=== PATIENT | male | born 1965 | race Caucasian/White ===

== ENCOUNTER 2016-07-10 08:24 | Emergency (ER) | payer OTHER ==
[~2016-07-10] VITALS: Ht 185.4 cm; Wt 81.6 kg
[2016-07-10 09:15] VITALS: BP 125/73
== END 2016-07-10 11:30 | disposition home or self-care (01) ==
LOC: ER 08:24
DX: S60.561A Insect bite (nonvenomous) of right hand, initial encounter (principal); L03.113 Cellulitis of right upper limb; F17.210 Nicotine dependence, cigarettes, uncomplicated; F12.10 Cannabis abuse, uncomplicated; Z59.0 Homelessness; F15.10 Other stimulant abuse, uncomplicated; W57.XXXA Bitten or stung by nonvenomous insect and other nonvenomous arthropods, initial encounter; Y93.89 Activity, other specified; Y99.9 Unspecified external cause status; Y92.89 Other specified places as the place of occurrence of the external cause

== ENCOUNTER 2016-12-14 08:43 | Emergency (ER) | payer OTHER ==
[~2016-12-14] VITALS: Ht 188 cm; Wt 81.6 kg
[2016-12-14 08:48] VITALS: BP 131/73
[2016-12-14] MEDS ORDERED: cefTRIAXone SOD 1,000 MG VL IM ONE (10:30)
== END 2016-12-14 10:57 | disposition home or self-care (01) ==
LOC: EDBD 08:43 → ER 08:48
DX: S11.95XA Open bite of unspecified part of neck, initial encounter (principal); B96.89 Other specified bacterial agents as the cause of diseases classified elsewhere; F17.210 Nicotine dependence, cigarettes, uncomplicated; F12.10 Cannabis abuse, uncomplicated; F15.10 Other stimulant abuse, uncomplicated; W57.XXXA Bitten or stung by nonvenomous insect and other nonvenomous arthropods, initial encounter; Y93.89 Activity, other specified; Y92.89 Other specified places as the place of occurrence of the external cause; Y99.8 Other external cause status; Z59.0 Homelessness
CPT/HCPCS: 96372; 99283; J0696

== ENCOUNTER 2016-12-27 14:38 | Emergency (ER) | payer OTHER ==
[~2016-12-27] VITALS: Ht 185.4 cm; Wt 99.8 kg
[2016-12-27] MEDS ORDERED: KETOROLAC TROMETH 30 MG/ML 1ML VIAL IV ONE (15:30)
[2016-12-27 15:31] LABS: Basophils # (auto) 0 uL; CONDITION Y; Eosinophils # (auto) 0.1 uL; Eosinophils % (auto) 0.9 % (0.0-7.0); Hematocrit 40.1 % (41.0-53.0); Hemoglobin 13.7 g/dL (13.5-17.5); Lymphocytes # (auto) 0.9 uL; Lymphocytes % (auto) 8.9 % (10.0-50.0); Mean Corpuscular Hemoglobin 31.2 pg (28.0-32.0); Mean Corpuscular Hgb Conc. 34.1 g/dL (32.0-36.0); Mean Corpuscular Volume 91.5 fL (80.0-100.0); Mean Platelet Volume 9.5 fL (7.4-10.4); Monocytes # (auto) 0.9 uL; Monocytes % (auto) 9.4 % (0.0-12.0); Neutrophils # (auto) 7.8 uL; Neutrophils % (auto) 80.8 % (37.0-80.0); Platelet Count (auto) 223 10^3/uL (140-450); Red Cell Distribution Width 13.8 % (11.6-16.0); White Blood Cell 9.7 10^3/uL (4.4-10.8)
[2016-12-27] MEDS ORDERED: IOHEXOL 300 MG/ML 100ML BOTTLE IJ ONE (15:47)
[2016-12-27 15:53] LABS: Albumin 2.9 g/dL (3.4-5.0); BUN/Creatinine Ratio 9.9; Calcium 7.9 mg/dL (8.5-10.1); Potassium 3.6 mmol/L (3.5-5.1)
[2016-12-27 15:56] LABS: Bilirubin, Total 0.6 mg/dL (0.2-1.0); Total Protein 6.5 g/dL (6.4-8.2)
[2016-12-27 18:20] LABS: Urine Bilirubin Negative (Negative); Urine Color Yellow (Yellow); Urine Glucose Normal (Normal); Urine Ketone Negative (Negative); Urine Nitrite Negative (Negative); Urine RBC 14 /hpf (0 - 3); Urine Squamous Epithelial Cell FEW /hpf (<5); Urine Urobilinogen Normal (Negative)
[2016-12-27 19:38] LABS: Urine Blood 1+ /uL (Negative)
[2016-12-27 20:41] VITALS: BP 138/58
== END 2016-12-27 20:46 | disposition home or self-care (01) ==
LOC: EDBD 14:38 → ER 14:43
DX: R10.9 Unspecified abdominal pain (principal); F17.210 Nicotine dependence, cigarettes, uncomplicated; F12.10 Cannabis abuse, uncomplicated; F15.10 Other stimulant abuse, uncomplicated; Z59.0 Homelessness
CPT/HCPCS: 36415; 71260; 74177; 80053; 80307; 80320; 81001; 83690; 85025; 94761; 96374; 99285; J1885; Q9967; 93005

== ENCOUNTER 2017-02-09 10:44 | Emergency (ER) | payer OTHER ==
[~2017-02-09] VITALS: Ht 182.9 cm; Wt 81.6 kg
[2017-02-09 14:06] VITALS: BP 146/97
== END 2017-02-09 14:51 | disposition home or self-care (01) ==
LOC: ER 10:44
DX: S93.401A Sprain of unspecified ligament of right ankle, initial encounter (principal); F17.210 Nicotine dependence, cigarettes, uncomplicated; F12.10 Cannabis abuse, uncomplicated; F15.10 Other stimulant abuse, uncomplicated; W19.XXXA Unspecified fall, initial encounter; Y93.89 Activity, other specified; Y99.8 Other external cause status; Y92.89 Other specified places as the place of occurrence of the external cause; Z59.0 Homelessness
CPT/HCPCS: 29515; 73610

== ENCOUNTER 2017-04-12 17:03 | Emergency (ER) | payer OTHER ==
[~2017-04-12] VITALS: Ht 190.5 cm; Wt 81.6 kg
[2017-04-12 17:12] VITALS: BP 131/71
[2017-04-12] MEDS ORDERED: cefTRIAXone SOD 1,000 MG VL IM ONE (21:15)
[2017-04-12] MEDS ORDERED: IBUPROFEN 600 MG TAB PO ONE (21:15)
== END 2017-04-12 21:40 | disposition home or self-care (01) ==
LOC: EDBD 17:03 → ER 17:03
DX: L02.414 Cutaneous abscess of left upper limb (principal); L02.413 Cutaneous abscess of right upper limb; F17.210 Nicotine dependence, cigarettes, uncomplicated; F12.10 Cannabis abuse, uncomplicated; F15.10 Other stimulant abuse, uncomplicated; Z59.0 Homelessness; W57.XXXA Bitten or stung by nonvenomous insect and other nonvenomous arthropods, initial encounter; Y93.89 Activity, other specified; Y99.8 Other external cause status; Y92.89 Other specified places as the place of occurrence of the external cause
CPT/HCPCS: 96372; 99283; J0696

== ENCOUNTER 2017-09-23 14:18 | Emergency (ER) | payer OTHER ==
[~2017-09-23] VITALS: Ht 182.9 cm; Wt 81.6 kg
[2017-09-23 14:37] VITALS: BP 135/88
== END 2017-09-23 15:42 | disposition home or self-care (01) ==
LOC: ER 14:18
DX: S70.361A Insect bite (nonvenomous), right thigh, initial encounter (principal); F17.210 Nicotine dependence, cigarettes, uncomplicated; W57.XXXA Bitten or stung by nonvenomous insect and other nonvenomous arthropods, initial encounter; Z59.0 Homelessness; Y93.89 Activity, other specified; Y99.8 Other external cause status; Y92.89 Other specified places as the place of occurrence of the external cause

== ENCOUNTER 2017-10-28 10:15 | Inpatient (IN) | payer OTHER ==
[~2017-10-28] VITALS: Ht 182.9 cm; Wt 86.6 kg
[2017-10-28] MEDS ORDERED: ONDANSETRON HCL 4 MG/2 ML VIAL IV ONE (10:45)
[2017-10-28] MEDS ORDERED: SODIUM CHLORIDE 0.9% 1,000 ML IV ONE (10:49)
[2017-10-28] MEDS ORDERED: PROMETHAZINE HCL 25 MG/ML 1ML IV ONE (11:00)
[2017-10-28 11:06] LABS: Basophils # (auto) 0 uL; Basophils % (auto) 0.1 % (0.0-2.0); Eosinophils # (auto) 0 uL; Hematocrit 38.6 % (41.0-53.0); Hemoglobin 12.6 g/dL (13.5-17.5); Lymphocytes # (auto) 0.4 uL; Lymphocytes % (auto) 3.2 % (10.0-50.0); Mean Corpuscular Hemoglobin 30.9 pg (28.0-32.0); Mean Corpuscular Hgb Conc. 32.8 g/dL (32.0-36.0); Mean Corpuscular Volume 94.3 fL (80.0-100.0); Monocytes # (auto) 1.3 uL; Monocytes % (auto) 10.6 % (0.0-12.0); Neutrophils # (auto) 10.7 uL; Neutrophils % (auto) 86.1 % (37.0-80.0); Platelet Count (auto) 168 10^3/uL (140-450); Red Blood Cells 4.09 10^6/uL (4.5-5.90); Red Cell Distribution Width 13.8 % (11.8-14.3); White Blood Cell 12.4 10^3/uL (4.4-10.8)
[2017-10-28 11:30] LABS: Albumin 3.1 g/dL (3.4-5.0); BUN/Creatinine Ratio 14.7; Bilirubin, Total 1.5 mg/dL (0.2-1.0); Calcium 7.9 mg/dL (8.5-10.1); Potassium 3.8 mmol/L (3.5-5.1); Total Protein 6.2 g/dL (6.4-8.2)
[2017-10-28] MEDS ORDERED: cefTRIAXone 1GM/10ml IVPUSH 10 ML IV ONE (12:30)
[2017-10-28] MEDS ORDERED: AZITHROMYCIN 500MG/ 250ML 250 ML IV ONE (17:30)
[2017-10-28] MEDS: SODIUM CHLORIDE 0.9% 1,000 ML IV SCH (17:37)
[2017-10-28] MEDS ORDERED: ALBUTEROL SULF 2.5 MG/0.5ML(0.5%) NEB SOLN NEB PRN (17:45)
[2017-10-28] MEDS ORDERED: PROMETHAZINE HCL 25 MG/ML 1ML IV PRN (17:45)
[2017-10-28] MEDS ORDERED: TEMAZEPAM 15 MG CAP PO PRN (17:45)
[2017-10-28] MEDS ORDERED: MORPHINE SULFATE 4 MG/ML SYR/VIAL IV PRN ×3 (17:45)
[2017-10-28] MEDS ORDERED: PANTOPRAZOLE 40 MG/10 ML VIAL IV ONE (17:45)
[2017-10-28] MEDS ORDERED: NITROGLYCERIN 0.4 MG SL TAB SL PRN (17:45)
[2017-10-28] MEDS: metroNIDAZOLE 500MG/100ML 100 ML IV SCH ×2 (18:00→19:30)
[2017-10-28 18:09] VITALS: BP 103/18
[2017-10-28] MEDS ORDERED: LEVOFLOXACIN 500MG 100 ML IV ONE (18:15)
[2017-10-28 19:11] LABS: Hematocrit 37.5 % (41.0-53.0); Hemoglobin 12.5 g/dL (13.5-17.5)
[2017-10-28 19:28] LABS: CRP High Sensitivity 16.1 mg/dL (< 0.3)
[2017-10-28 19:40] VITALS: BP 122/59
[2017-10-28 22:00] VITALS: BP 122/59
[2017-10-29 01:29] LABS: Hematocrit 36.7 % (41.0-53.0); Hemoglobin 12.3 g/dL (13.5-17.5)
[2017-10-29] MEDS: SODIUM CHLORIDE 0.9% 1,000 ML IV SCH ×3 (03:09→23:36)
[2017-10-29 05:00] VITALS: BP 101/54
[2017-10-29] MEDS: metroNIDAZOLE 500MG/100ML 100 ML IV SCH ×4 (05:14→23:45)
[2017-10-29 07:17] LABS: Albumin 2.5 g/dL (3.4-5.0); BUN/Creatinine Ratio 16.8; Bilirubin, Total 1.8 mg/dL (0.2-1.0); Calcium 8.1 mg/dL (8.5-10.1); Potassium 3.7 mmol/L (3.5-5.1); Total Protein 5.6 g/dL (6.4-8.2)
[2017-10-29 08:00] VITALS: BP 97/62
[2017-10-29 08:11] LABS: Basophils # (auto) 0 uL; Basophils % (auto) 0.3 % (0.0-2.0); Eosinophils # (auto) 0.1 uL; Eosinophils % (auto) 0.4 % (0.0-7.0); Hematocrit 35.1 % (41.0-53.0); Hemoglobin 11.6 g/dL (13.5-17.5); Lymphocytes # (auto) 1.5 uL; Lymphocytes % (auto) 12.5 % (10.0-50.0); Mean Corpuscular Hemoglobin 31.2 pg (28.0-32.0); Mean Corpuscular Hgb Conc. 33.1 g/dL (32.0-36.0); Mean Corpuscular Volume 94.3 fL (80.0-100.0); Monocytes # (auto) 0.9 uL; Monocytes % (auto) 7.3 % (0.0-12.0); Neutrophils # (auto) 9.6 uL; Neutrophils % (auto) 79.5 % (37.0-80.0); Platelet Count (auto) 155 10^3/uL (140-450); Red Blood Cells 3.72 10^6/uL (4.5-5.90); Red Cell Distribution Width 13.5 % (11.8-14.3)
[2017-10-29 09:00] VITALS: BP 97/62
[2017-10-29] MEDS: PANTOPRAZOLE 40 MG/10 ML VIAL IV SCH (10:41)
[2017-10-29] MEDS: LEVOFLOXACIN 500MG 100 ML IV SCH (10:42)
[2017-10-29 13:00] VITALS: BP 95/61
[2017-10-29 17:28] VITALS: BP 91/53
[2017-10-29 22:39] LABS: Urine Bacteria NONE SEEN /hpf (None Seen); Urine Blood Negative /uL (Negative); Urine Specific Gravity 1.016 (1.001-1.035); Urine WBC 16 /hpf (0 - 3)
[2017-10-29 22:52] LABS: Alcohol, Urine < 3.0 mg/dL (0-5); Barbiturate Scree,Urine NEGATIVE (NEGATIVE); Benzodiazephine Screen, Urine NEGATIVE (NEGATIVE); Cannabinoid Screen, Urine NEGATIVE (NEGATIVE); Cocaine Screen, Urine NEGATIVE (NEGATIVE); Opiate Scree,Urine NEGATIVE (NEGATIVE); Phencyclidine Screen, Urine NEGATIVE (NEGATIVE)
[2017-10-29 22:54] LABS: Amphetamine Screen, Urine POSITIVE (NEGATIVE)
[2017-10-29 23:02] VITALS: BP 119/57
[2017-10-30] MEDS: LORazepam 0.5 MG TAB PO PRN (03:40)
[2017-10-30] MEDS: metroNIDAZOLE 500MG/100ML 100 ML IV SCH ×4 (05:52→23:28)
[2017-10-30 05:59] VITALS: BP 109/54
[2017-10-30] MEDS: SODIUM CHLORIDE 0.9% 1,000 ML IV SCH ×2 (08:50→19:41)
[2017-10-30 09:00] VITALS: BP 100/48
[2017-10-30] MEDS: PANTOPRAZOLE 40 MG/10 ML VIAL IV SCH (10:32)
[2017-10-30] MEDS: LEVOFLOXACIN 500MG 100 ML IV SCH (10:32)
[2017-10-30 17:00] VITALS: BP 97/44
[2017-10-30 22:00] VITALS: BP 112/46
[2017-10-31] MEDS: LORazepam 0.5 MG TAB PO PRN (02:04)
[2017-10-31 05:00] VITALS: BP 104/47
[2017-10-31] MEDS: SODIUM CHLORIDE 0.9% 1,000 ML IV SCH ×2 (05:37→15:37)
[2017-10-31] MEDS: metroNIDAZOLE 500MG/100ML 100 ML IV SCH ×3 (05:42→17:50)
[2017-10-31 07:25] LABS: Potassium 3.7 mmol/L (3.5-5.1)
[2017-10-31 07:30] LABS: BUN/Creatinine Ratio 14.4; Calcium 8.3 mg/dL (8.5-10.1)
[2017-10-31 07:31] LABS: Basophils # (auto) 0 uL; Basophils % (auto) 0.2 % (0.0-2.0); Eosinophils # (auto) 0.2 uL; Eosinophils % (auto) 2.5 % (0.0-7.0); Hematocrit 34.8 % (41.0-53.0); Hemoglobin 11.8 g/dL (13.5-17.5); Lymphocytes % (auto) 13.6 % (10.0-50.0); Mean Corpuscular Hemoglobin 31.8 pg (28.0-32.0); Mean Corpuscular Hgb Conc. 33.9 g/dL (32.0-36.0); Mean Corpuscular Volume 93.6 fL (80.0-100.0); Monocytes # (auto) 0.6 uL; Monocytes % (auto) 8.5 % (0.0-12.0); Neutrophils # (auto) 5.5 uL; Neutrophils % (auto) 75.2 % (37.0-80.0); Platelet Count (auto) 198 10^3/uL (140-450); Red Blood Cells 3.72 10^6/uL (4.5-5.90); Red Cell Distribution Width 13.3 % (11.8-14.3); White Blood Cell 7.3 10^3/uL (4.4-10.8)
[2017-10-31 08:00] VITALS: BP 100/56
[2017-10-31 09:39] VITALS: BP 100/56
[2017-10-31] MEDS: PANTOPRAZOLE 40 MG/10 ML VIAL IV SCH (10:56)
[2017-10-31] MEDS: LEVOFLOXACIN 500MG 100 ML IV SCH (10:56)
[2017-10-31 13:00] VITALS: BP 92/44
[2017-10-31 16:30] VITALS: BP 97/50
[2017-10-31 17:50] VITALS: BP 97/50
[2017-11-01 09:47] LABS: Hepatitis B Surface Antibody Negative
[2017-11-01 09:56] LABS: Hepatitis B Surface Antigen < 0.10 (Negative)
[2017-11-01 10:19] LABS: Hepatitis A Total Antibody Negative
[2017-11-01 13:41] LABS: Hepatitis B Core Total AB Negative; Hepatitis C Antibody Negative (Negative)
== END 2017-10-31 19:45 | disposition home or self-care (01) | DRG 139 ==
LOC: ER 10:15 → EDBD 10:15 → TELE 10:16 → TELE-CENTR 19:38
PROVIDERS: ADMIT Internal Medicine; ATTEND Internal Medicine
DX: J18.1 Lobar pneumonia, unspecified organism (principal); E44.1 Mild protein-calorie malnutrition; F15.10 Other stimulant abuse, uncomplicated; F17.210 Nicotine dependence, cigarettes, uncomplicated; Z59.0 Homelessness; M54.9 Dorsalgia, unspecified; Z82.49 Family history of ischemic heart disease and other diseases of the circulatory system
CPT/HCPCS: 36415; 71045; 74176; 76705; 80048; 80053; 80061; 80307; 81001; 82150; 82270; 82378; 83690; 85014; 85018; 85025; 85045; 85652; 86141; 86704; 86706; 86708; 86803; 87040; 87070; 87086; 87205; 87340; 87493; 93005; 94640; 96361; 96365; 96367; 96375; C9113; J1956; J3490